=== PATIENT | female | born 1930 | race Caucasian/White ===

== ENCOUNTER 2016-10-07 19:36 | Inpatient (IN) | payer OTHER, MEDICAID ==
[~2016-10-07] VITALS: Ht 152.4 cm; Wt 64.4 kg
[2016-10-07 19:38] VITALS: BP_SYST 133
[2016-10-07 21:10] LABS: WHITE BLOOD COUNT (AUTO) 10.1 K/uL (4.8-10.8)
[2016-10-07 21:11] LABS: MEAN CORPUSCULAR HEMOGLOBIN 16 pg (27-31); MEAN CORPUSCULAR HGB CONC 30 % (32-36); MEAN CORPUSCULAR VOLUME 54 fL (79.0-98.0); PLATELET COUNT (AUTO) 272 K/uL (130-430); RED BLOOD CELL COUNT(AUTO) 3.78 MIL/uL (4.2-6.2); RED CELL DISTRIBUTION WIDTH 22.9 % (9.0-15.0)
[2016-10-07 21:12] LABS: ANION GAP 9 (5-15); CALCIUM 8.5 mg/dL (8.4-11.0); CHLORIDE 103 mmol/L (98-107); CREATININE 1.29 mg/dL (0.55-1.30); GLUCOSE 138 mg/dL (70-99); POTASSIUM 4.4 mmol/L (3.5-5.1); SODIUM SERUM 136 mmol/L (136-145); UREA NITROGEN, BLOOD 26 mg/dL (8-21)
[2016-10-07 21:13] LABS: HEMATOCRIT 20.2 % (36-48)
[2016-10-07 21:17] LABS: ALANINE AMINOTRANSFERASE 18 U/L (12-78); ALBUMIN 3.6 g/dL (3.4-4.8); ASPARTATE AMINOTRANSFERASE 19 U/L (10-37); TOTAL BILIRUBIN 0.3 mg/dL (0.0-1.0); TOTAL PROTEIN, SERUM 7.3 g/dL (6.4-8.3)
[2016-10-07] MEDS ORDERED: PIPERACILLIN/TAZO 3.375 GM in NS 50 ML IV ONE (21:30)
[2016-10-07] MEDS ORDERED: VANCOMYCIN HCL 1,000 MG in NS 250 ML IV ONE (21:30)
[2016-10-07 21:31] LABS: PROTHROMBIN TIME 10.5 SECS (9.5-12.5)
[2016-10-07 21:50] LABS: BILIRUBIN,URINE NEGATIVE (NEGATIVE); BLOOD, URINE 1+ (NEGATIVE); CLARITY/URINE HAZY (CLEAR); COLOR,URINE YELLOW (YELLOW); GLUCOSE,URINE NEGATIVE (NEGATIVE); KETONES,URINE NEGATIVE (NEGATIVE); LEUKOCYTE ESTERASE ,URINE 2+ (NEGATIVE); NITRITE, URINE NEGATIVE (NEGATIVE); PROTEIN URINE 1+ (NEGATIVE); UROBILINOGEN,URINE 0.2 (0.2-1.0)
[2016-10-07 21:53] LABS: ATYPICAL LYMPHOCYTES % 0 % (0-0); BAND % (MANUAL) 1 % (0-6); BASOPHILS % (MANUAL) 0 % (0-2); EOSINOPHILS % (MANUAL) 0 % (0-7); LYMPHOCYTES % (MANUAL) 13 % (20-46); MONOCYTES % (MANUAL) 1 % (0-11)
[2016-10-07] MEDS ORDERED: ZOLP5TAB2 PO (21:53)
[2016-10-07] MEDS ORDERED: LORA-258 PO (21:54)
[2016-10-07] MEDS ORDERED: ESCI5TAB PO (21:55)
[2016-10-07] MEDS ORDERED: IBUP-1969 PO (21:55)
[2016-10-07] MEDS ORDERED: MULT PO (21:56)
[2016-10-07] MEDS ORDERED: PIPERACILLIN/TAZOBACTAM 3.375 GM/VIAL (ZOSYN) IV ONE (21:57)
[2016-10-07] MEDS ORDERED: LEVO88TA2 PO (21:57)
[2016-10-07] MEDS ORDERED: SIME80TA PO (21:57)
[2016-10-07] MEDS ORDERED: VANCOMYCIN HCL 1000 MG/VIAL IV ONE (21:58)
[2016-10-07] MEDS ORDERED: LORazepam 1 MG TABLET PO PRN (22:15)
[2016-10-07] MEDS ORDERED: SIMETHICONE 80 MG TAB.CHEW PO PRN (22:15)
[2016-10-07 22:23] VITALS: BP_SYST 145
[2016-10-07 23:01] LABS: BACTERIA,URINE MANY /HPF (None Seen); MUCUS,URINE 1+ /LPF (None Seen)
[2016-10-08] MEDS: ZOLPIDEM TARTRATE 5 MG TABLET PO PRN ×2 (00:43→23:21)
[2016-10-08 01:39] VITALS: BP_SYST 139
[2016-10-08] MEDS: IBUPROFEN 600 MG TABLET PO PRN ×2 (01:54→08:44)
[2016-10-08] MEDS ORDERED: CEFAZOLIN 1 GM IVPB PREMIX 50 ML IV ONE (05:59)
[2016-10-08] MEDS ORDERED: ceFAZolin SODIUM 1 GM in D5W 50 ML IV ONE (06:00)
[2016-10-08 06:24] LABS: BASOPHILS # (AUTO) 0.1 K/uL (0.0-0.2); EOSINOPHILS # (AUTO) 0.3 K/uL (0.0-0.4); EOSINOPHILS % (AUTO) 2.4 % (0.0-4.0); LYMPHOCYTES # (AUTO) 1.3 K/uL (1.0-5.5); LYMPHOCYTES % (AUTO) 12.1 % (20.5-51.5); MEAN CORPUSCULAR HEMOGLOBIN 16 pg (27-31); MEAN CORPUSCULAR HGB CONC 30 % (32-36); MEAN CORPUSCULAR VOLUME 54 fL (79.0-98.0); MONOCYTES % (AUTO) 9.1 % (1.7-9.3); NEUTROPHILS # (AUTO) 7.8 K/uL (1.8-7.7); NEUTROPHILS % (AUTO) 75.4 % (40.0-70.0); PLATELET COUNT (AUTO) 317 K/uL (130-430); RED BLOOD CELL COUNT(AUTO) 3.31 MIL/uL (4.2-6.2); RED CELL DISTRIBUTION WIDTH 22.8 % (9.0-15.0); WHITE BLOOD COUNT (AUTO) 10.5 K/uL (4.8-10.8)
[2016-10-08 06:30] LABS: HEMOGLOBIN 5.3 g/dL (12.0-16.0)
[2016-10-08] MEDS: LEVOTHYROXINE SODIUM 0.088 MG TABLET PO SCH (06:30)
[2016-10-08 06:31] LABS: HEMATOCRIT 17.9 % (36-48)
[2016-10-08 06:47] LABS: IRON (SERUM) 11 mcg/dL (37-145); TOTAL IRON BIND. CAPACITY 362 ug/dL (250-450)
[2016-10-08 08:01] VITALS: BP_SYST 136
[2016-10-08] MEDS: MULTIVITAMINS TAB 1 TABLET PO SCH (08:44)
[2016-10-08] MEDS: CITALOPRAM HYDROBROMIDE 20 MG TABLET PO SCH (09:00)
[2016-10-08 12:37] VITALS: BP_SYST 132
[2016-10-08] MEDS: traMADol HCL HCL 50 MG TABLET (ULTRAM) PO PRN ×2 (16:04→20:56)
[2016-10-08 16:37] VITALS: BP_SYST 129
[2016-10-08 19:50] VITALS: BP_SYST 148
[2016-10-08 20:00] VITALS: BP_SYST 148
[2016-10-08] MEDS ORDERED: ONDANSETRON HCL 4 MG/2 ML VIAL IVP PRN (20:30)
[2016-10-08] MEDS: LEVOFLOXACIN 500 MG/D5W 100 ML IV SCH (21:00)
[2016-10-08] MEDS: DENTAL PASTE MM SCH (21:00)
[2016-10-08] MEDS: TRIAMCINOLONE ACETONIDE 0.1% MM SCH (21:00)
[2016-10-08] MEDS ORDERED: VANCOMYCIN HCL 1 GM/NS PREMIX 250 ML IV ONE (21:00)
[2016-10-09 01:42] VITALS: BP_SYST 164
[2016-10-09 04:30] VITALS: BP_SYST 122
[2016-10-09 06:39] LABS: HEMATOCRIT 28.6 % (36-48); HEMOGLOBIN 8.8 g/dL (12.0-16.0); MEAN CORPUSCULAR HEMOGLOBIN 19 pg (27-31); MEAN CORPUSCULAR HGB CONC 31 % (32-36); MEAN CORPUSCULAR VOLUME 63 fL (79.0-98.0); PLATELET COUNT (AUTO) 280 K/uL (130-430); RED BLOOD CELL COUNT(AUTO) 4.58 MIL/uL (4.2-6.2); RED CELL DISTRIBUTION WIDTH 32.9 % (9.0-15.0); WHITE BLOOD COUNT (AUTO) 8.9 K/uL (4.8-10.8)
[2016-10-09 06:49] LABS: ANION GAP 8 (5-15); CALCIUM 8.4 mg/dL (8.4-11.0); CHLORIDE 106 mmol/L (98-107); CREATININE 1.24 mg/dL (0.55-1.30); GLUCOSE 120 mg/dL (70-99); POTASSIUM 4.4 mmol/L (3.5-5.1); SODIUM SERUM 137 mmol/L (136-145); UREA NITROGEN, BLOOD 23 mg/dL (8-21)
[2016-10-09] MEDS: LEVOTHYROXINE SODIUM 0.088 MG TABLET PO SCH (06:52)
[2016-10-09] MEDS ORDERED: MIDAZOLAM HCL 5 MG/5 ML VIAL ONE (07:55)
[2016-10-09] MEDS ORDERED: fentaNYL CITRATE/PF 100 MCG/2 ML AMP ONE (07:55)
[2016-10-09] MEDS ORDERED: VANCOMYCIN HCL 750 MG in NS 250 ML IV SCH (09:00)
[2016-10-09] MEDS: TRIAMCINOLONE ACETONIDE 0.1% MM SCH ×2 (09:00→21:38)
[2016-10-09] MEDS: DENTAL PASTE MM SCH ×2 (09:00→21:38)
[2016-10-09] MEDS ORDERED: SIMETHICONE 40 MG/0.6 ML ML ONE (09:08)
[2016-10-09 11:23] LABS: FOLATE (FOLIC ACID) 15.5 ng/mL (>3.0)
[2016-10-09 11:37] VITALS: BP_SYST 144
[2016-10-09] MEDS: CITALOPRAM HYDROBROMIDE 20 MG TABLET PO SCH (11:39)
[2016-10-09] MEDS: MULTIVITAMINS TAB 1 TABLET PO SCH (11:39)
[2016-10-09] MEDS: PANTOPRAZOLE SODIUM 40 MG/VIAL (PROTONIX) IVP SCH (11:40)
[2016-10-09 15:35] VITALS: BP_SYST 145
[2016-10-09] MEDS ORDERED: BISACODYL 5 MG TABLET.DR (DULCOLAX) PO ONE (17:00)
[2016-10-09] MEDS ORDERED: GOLYTELY / COLYTE SOLUTION 4 LITERS PO ONE (18:00)
[2016-10-09 20:00] VITALS: BP_SYST 157
[2016-10-09] MEDS: FLUCONAZOLE 100 mg/ NS 50 ML IV SCH (21:37)
[2016-10-09] MEDS: CLOTRIMAZOLE/BETAMET DIPROP 15 GM TUBE TP SCH (21:38)
[2016-10-09] MEDS: LEVOFLOXACIN 500 MG/D5W 100 ML IV SCH (22:27)
[2016-10-10 00:16] VITALS: BP_SYST 156
[2016-10-10] MEDS ORDERED: BISACODYL 5 MG TABLET.DR (DULCOLAX) PO ONE (01:00)
[2016-10-10 06:07] VITALS: BP_SYST 150
[2016-10-10] MEDS: LEVOTHYROXINE SODIUM 0.088 MG TABLET PO SCH (06:40)
[2016-10-10 07:10] LABS: PROTHROMBIN TIME 10.8 SECS (9.5-12.5)
[2016-10-10 08:00] VITALS: BP_SYST 123
[2016-10-10 12:00] VITALS: BP_SYST 143
[2016-10-10] MEDS ORDERED: MIDAZOLAM HCL 5 MG/5 ML VIAL ONE (12:00)
[2016-10-10] MEDS ORDERED: SIMETHICONE 40 MG/0.6 ML ML ONE (12:01)
[2016-10-10] MEDS ORDERED: fentaNYL CITRATE/PF 100 MCG/2 ML AMP ONE (12:01)
[2016-10-10 17:33] VITALS: BP_SYST 155
[2016-10-10] MEDS: VANCOMYCIN HCL 750 MG in NS 250 ML IV SCH (17:40)
[2016-10-10] MEDS: CLOTRIMAZOLE/BETAMET DIPROP 15 GM TUBE TP SCH ×2 (17:41→21:22)
[2016-10-10] MEDS: MULTIVITAMINS TAB 1 TABLET PO SCH (17:41)
[2016-10-10] MEDS: TRIAMCINOLONE ACETONIDE 0.1% MM SCH ×2 (17:41→21:23)
[2016-10-10] MEDS: DENTAL PASTE MM SCH ×2 (17:41→21:23)
[2016-10-10] MEDS: PANTOPRAZOLE SODIUM 40 MG/VIAL (PROTONIX) IVP SCH (17:42)
[2016-10-10] MEDS: CITALOPRAM HYDROBROMIDE 20 MG TABLET PO SCH (17:44)
[2016-10-10] MEDS ORDERED: GASTROGRAFIN 120 ML ONE (17:47)
[2016-10-10] MEDS: FLUCONAZOLE 100 mg/ NS 50 ML IV SCH (20:04)
[2016-10-10] MEDS: traMADol HCL HCL 50 MG TABLET (ULTRAM) PO PRN (20:06)
[2016-10-10] MEDS: LEVOFLOXACIN 500 MG/D5W 100 ML IV SCH (21:22)
[2016-10-10 23:50] VITALS: BP_SYST 148
[2016-10-11] VITALS (7 sets, daily range): BP systolic 131–149
[2016-10-11] MEDS: traMADol HCL HCL 50 MG TABLET (ULTRAM) PO PRN ×3 (03:03→23:22)
[2016-10-11 06:27] LABS: BASOPHILS # (AUTO) 0.1 K/uL (0.0-0.2); BASOPHILS % (AUTO) 0.8 % (0.0-2.0); EOSINOPHILS # (AUTO) 0.2 K/uL (0.0-0.4); EOSINOPHILS % (AUTO) 2.1 % (0.0-4.0); HEMATOCRIT 25.2 % (36-48); HEMOGLOBIN 7.7 g/dL (12.0-16.0); LYMPHOCYTES # (AUTO) 1.2 K/uL (1.0-5.5); LYMPHOCYTES % (AUTO) 15.9 % (20.5-51.5); MEAN CORPUSCULAR HEMOGLOBIN 19 pg (27-31); MEAN CORPUSCULAR HGB CONC 31 % (32-36); MEAN CORPUSCULAR VOLUME 62 fL (79.0-98.0); MONOCYTES # (AUTO) 0.8 K/uL (0.0-1.0); MONOCYTES % (AUTO) 11.2 % (1.7-9.3); PLATELET COUNT (AUTO) 259 K/uL (130-430); RED BLOOD CELL COUNT(AUTO) 4.04 MIL/uL (4.2-6.2); RED CELL DISTRIBUTION WIDTH 33.2 % (9.0-15.0); WHITE BLOOD COUNT (AUTO) 7.3 K/uL (4.8-10.8)
[2016-10-11] MEDS: LEVOTHYROXINE SODIUM 0.088 MG TABLET PO SCH (07:00)
[2016-10-11] MEDS: PANTOPRAZOLE SODIUM 40 MG/VIAL (PROTONIX) IVP SCH (08:58)
[2016-10-11] MEDS: CLOTRIMAZOLE/BETAMET DIPROP 15 GM TUBE TP SCH ×2 (08:59→21:00)
[2016-10-11] MEDS: DENTAL PASTE MM SCH ×2 (08:59→21:01)
[2016-10-11] MEDS: TRIAMCINOLONE ACETONIDE 0.1% MM SCH ×2 (08:59→21:01)
[2016-10-11] MEDS: CITALOPRAM HYDROBROMIDE 20 MG TABLET PO SCH (09:00)
[2016-10-11] MEDS: MULTIVITAMINS TAB 1 TABLET PO SCH (09:00)
[2016-10-11] MEDS: VANCOMYCIN HCL 750 MG in NS 250 ML IV SCH ×3 (18:08→19:32)
[2016-10-11] MEDS: FLUCONAZOLE 100 mg/ NS 50 ML IV SCH (18:13)
[2016-10-11] MEDS: LEVOFLOXACIN 500 MG/D5W 100 ML IV SCH (20:59)
[2016-10-12 02:06] VITALS: BP_SYST 135
[2016-10-12 04:09] VITALS: BP_SYST 132
[2016-10-12] MEDS: LEVOTHYROXINE SODIUM 0.088 MG TABLET PO SCH (05:46)
[2016-10-12 07:30] VITALS: BP_SYST 128
[2016-10-12] MEDS: CITALOPRAM HYDROBROMIDE 20 MG TABLET PO SCH (09:50)
[2016-10-12] MEDS: MULTIVITAMINS TAB 1 TABLET PO SCH (09:50)
[2016-10-12] MEDS: CLOTRIMAZOLE/BETAMET DIPROP 15 GM TUBE TP SCH ×2 (09:51→20:37)
[2016-10-12] MEDS: TRIAMCINOLONE ACETONIDE 0.1% MM SCH ×2 (09:51→20:36)
[2016-10-12] MEDS: DENTAL PASTE MM SCH ×2 (09:51→20:36)
[2016-10-12] MEDS: PANTOPRAZOLE SODIUM 40 MG/VIAL (PROTONIX) IVP SCH (09:52)
[2016-10-12] MEDS: traMADol HCL HCL 50 MG TABLET (ULTRAM) PO PRN (11:58)
[2016-10-12 12:00] VITALS: BP_SYST 126
[2016-10-12 16:00] VITALS: BP_SYST 124
[2016-10-12] MEDS: VANCOMYCIN HCL 750 MG in NS 250 ML IV SCH (17:05)
[2016-10-12] MEDS: FLUCONAZOLE 100 mg/ NS 50 ML IV SCH (19:18)
[2016-10-12 20:10] VITALS: BP_SYST 137
[2016-10-12] MEDS: LEVOFLOXACIN 500 MG/D5W 100 ML IV SCH (20:36)
[2016-10-13] VITALS: BP_SYST 140
[2016-10-13 04:00] VITALS: BP_SYST 143
[2016-10-13] MEDS: LEVOTHYROXINE SODIUM 0.088 MG TABLET PO SCH (06:11)
[2016-10-13 06:40] LABS: BASOPHILS # (AUTO) 0.1 K/uL (0.0-0.2); BASOPHILS % (AUTO) 0.7 % (0.0-2.0); EOSINOPHILS # (AUTO) 0.1 K/uL (0.0-0.4); EOSINOPHILS % (AUTO) 1.5 % (0.0-4.0); HEMATOCRIT 25.9 % (36-48); HEMOGLOBIN 7.8 g/dL (12.0-16.0); LYMPHOCYTES % (AUTO) 12.7 % (20.5-51.5); MEAN CORPUSCULAR HEMOGLOBIN 19 pg (27-31); MEAN CORPUSCULAR HGB CONC 30 % (32-36); MEAN CORPUSCULAR VOLUME 64 fL (79.0-98.0); MONOCYTES % (AUTO) 12.5 % (1.7-9.3); NEUTROPHILS # (AUTO) 5.4 K/uL (1.8-7.7); NEUTROPHILS % (AUTO) 72.6 % (40.0-70.0); PLATELET COUNT (AUTO) 251 K/uL (130-430); RED BLOOD CELL COUNT(AUTO) 4.07 MIL/uL (4.2-6.2); RED CELL DISTRIBUTION WIDTH 33.9 % (9.0-15.0); WHITE BLOOD COUNT (AUTO) 7.6 K/uL (4.8-10.8)
[2016-10-13 08:00] VITALS: BP_SYST 123
[2016-10-13] MEDS: HYDROcodone/ACETAMIN 5-325 MG TAB (NORCO/ VICODIN) PO PRN ×2 (08:56→14:50)
[2016-10-13] MEDS: TRIAMCINOLONE ACETONIDE 0.1% MM SCH (09:31)
[2016-10-13] MEDS: DENTAL PASTE MM SCH (09:31)
[2016-10-13] MEDS: PANTOPRAZOLE SODIUM 40 MG/VIAL (PROTONIX) IVP SCH (09:31)
[2016-10-13] MEDS: MULTIVITAMINS TAB 1 TABLET PO SCH (09:31)
[2016-10-13] MEDS: CITALOPRAM HYDROBROMIDE 20 MG TABLET PO SCH (09:31)
[2016-10-13] MEDS: CLOTRIMAZOLE/BETAMET DIPROP 15 GM TUBE TP SCH (09:32)
[2016-10-13 11:50] VITALS: BP_SYST 110
[2016-10-13 15:21] VITALS: BP_SYST 133
[2016-10-13 16:46] VITALS: BP_SYST 135
== END 2016-10-13 16:45 | DRG 392 ==
LOC: SED 19:36 → STU 21:50 → SMU 10-13 11:30
PROVIDERS: ADMIT Family Medicine; ATTEND Family Medicine
PROC: 30233N1 Transfusion of Nonautologous Red Blood Cells into Peripheral Vein, Percutaneous Approach (ICD-10-PCS; 2016-10-08)
PROC: 0DB98ZX Excision of Duodenum, Via Natural or Artificial Opening Endoscopic, Diagnostic (ICD-10-PCS; 2016-10-09)
PROC: 0DB68ZX Excision of Stomach, Via Natural or Artificial Opening Endoscopic, Diagnostic (ICD-10-PCS; 2016-10-09)
PROC: 0DJD8ZZ Inspection of Lower Intestinal Tract, Via Natural or Artificial Opening Endoscopic (ICD-10-PCS; principal; 2016-10-10 15:00)
DX: K29.70 Gastritis, unspecified, without bleeding (principal); E87.2 Acidosis; F33.9 Major depressive disorder, recurrent, unspecified; I24.8 Other forms of acute ischemic heart disease; N39.0 Urinary tract infection, site not specified; L03.113 Cellulitis of right upper limb; E03.9 Hypothyroidism, unspecified; B35.4 Tinea corporis; D50.9 Iron deficiency anemia, unspecified; E11.9 Type 2 diabetes mellitus without complications; E78.5 Hyperlipidemia, unspecified; F03.90 Unspecified dementia, unspecified severity, without behavioral disturbance, psychotic disturbance, mood disturbance, and anxiety; F41.9 Anxiety disorder, unspecified; L25.9 Unspecified contact dermatitis, unspecified cause; H54.42 Blindness, left eye, normal vision right eye; K57.30 Diverticulosis of large intestine without perforation or abscess without bleeding; K64.8 Other hemorrhoids; Q27.33 Arteriovenous malformation of digestive system vessel; Z22.322 Carrier or suspected carrier of Methicillin resistant Staphylococcus aureus; Z91.81 History of falling
CPT/HCPCS: 36415; 43239; 45378; 71010; 74250-TC; 80048; 80053; 80202-TC; 81000-TC; 82607; 82728; 82746; 82962; 83540-TC; 83550-TC; 83605; 84484; 85007; 85025; 85027; 85044-TC; 85610-TC; 86886; 86900; 86901; 86920; 87040-TC; 87081; 87086; 88305; 88312; 88313; 93005; 93306; 96365; 96366; 96367; 99285; C9113; J0690; J1450; J1956; J2250; J2543; J3010; J3370; J7030; J7050; P9021; Q9963